=== PATIENT | female | born 1955 | race Two or more races ===

== ENCOUNTER 2021-01-15 18:00 | Emergency (ER) | payer MEDICARE ==
[~2021-01-15] VITALS: Ht 160 cm; Wt 72.6 kg
[2021-01-15 21:10] VITALS: BP 136/59
[2021-01-15] MEDS ORDERED: ACETAMINOPHEN 325 MG TAB PO ONE (22:00)
== END 2021-01-15 22:31 | disposition home or self-care (01) ==
LOC: ER 18:00
DX: I83.91 Asymptomatic varicose veins of right lower extremity (principal); M25.571 Pain in right ankle and joints of right foot; Z86.73 Personal history of transient ischemic attack (TIA), and cerebral infarction without residual deficits
CPT/HCPCS: 73610; 73630; 93971

== ENCOUNTER 2021-06-03 10:29 | Inpatient (IN) | payer MEDICARE ==
[~2021-06-03] VITALS: Ht 157.5 cm; Wt 63.5 kg
[2021-06-03 11:19] LABS: Basophils # (auto) 0.1 10 ^3/uL (0-0.2); Basophils % (auto) 0.4 % (0.0-2.0); Eosinophils # (auto) 0.1 10 ^3/uL (0-0.8); Eosinophils % (auto) 0.4 % (0.0-7.0); Hematocrit 40.8 % (36.0-46.0); Hemoglobin 13.7 g/dL (12.2-16.2); Lymphocytes # (auto) 1.1 10 ^3/uL (0.4-5.4); Lymphocytes % (auto) 7.2 % (10.0-50.0); Mean Corpuscular Hemoglobin 31.3 pg (28.0-32.0); Mean Corpuscular Hgb Conc. 33.5 g/dL (32.0-36.0); Mean Corpuscular Volume 93.4 fL (80.0-100.0); Monocytes # (auto) 0.7 10 ^3/uL (0-1.3); Monocytes % (auto) 4.5 % (0.0-12.0); Neutrophils # (auto) 13.2 10 ^3/uL (1.6-8.6); Neutrophils % (auto) 87.5 % (37.0-80.0); Red Blood Cells 4.37 10^6/uL (4.0-5.20); Red Cell Distribution Width 14.4 % (11.8-14.3); White Blood Cell 15.1 10^3/uL (4.4-10.8)
[2021-06-03 11:32] LABS: Albumin 3.4 g/dL (3.4-5.0); Potassium 4.4 mmol/L (3.5-5.1)
[2021-06-03 11:42] LABS: Bilirubin, Total 0.5 mg/dL (0.2-1.0); Total Protein 8.5 g/dL (6.4-8.2)
[2021-06-03 12:18] LABS: Urine Amorphous Crystal FEW /hpf (None Seen); Urine Bacteria FEW /hpf (None Seen); Urine Blood 2+ /uL (Negative); Urine Budding Yeast OCCASIONAL /hpf (None Seen); Urine Mucus FEW (None Seen); Urine Specific Gravity 1.024 (1.001-1.035); Urine WBC 5 /hpf (0 - 5)
[2021-06-03] MEDS ORDERED: ONDANSETRON HCL 4 MG/2 ML VIAL IV PRN (12:30)
[2021-06-03] MEDS ORDERED: HYDROcodone-ACET 5/325MG TAB PO PRN (12:30)
[2021-06-03] MEDS ORDERED: ACETAMINOPHEN 500 MG TAB PO PRN (12:30)
[2021-06-03] MEDS ORDERED: NITROGLYCERIN 0.4 MG SL TAB SL PRN (12:30)
[2021-06-03] MEDS ORDERED: MORPHINE SULF INJ 2 MG/ML SYRINGE 1ML IV PRN ×2 (12:30)
[2021-06-03] MEDS: LACTATED RINGER'S 1,000 ML IV SCH (13:16)
[2021-06-03 17:00] VITALS: BP 131/71
[2021-06-03 22:00] VITALS: BP 102/59
[2021-06-03] MEDS ORDERED: METF-370 PO (23:59)
[2021-06-03] MEDS ORDERED: MELA10TA3 OR (23:59)
[2021-06-03] MEDS ORDERED: CYCL10TA6 PO (23:59)
[2021-06-03] MEDS ORDERED: ESCI10TA PO (23:59)
[2021-06-04] MEDS: LACTATED RINGER'S 1,000 ML IV SCH ×2 (04:07→17:15)
[2021-06-04 05:00] VITALS: BP 102/59
[2021-06-04 09:07] VITALS: BP 102/61
[2021-06-04 09:32] LABS: Basophils # (auto) 0 10 ^3/uL (0-0.2); Basophils % (auto) 0.6 % (0.0-2.0); Eosinophils # (auto) 0.2 10 ^3/uL (0-0.8); Eosinophils % (auto) 1.8 % (0.0-7.0); Hematocrit 38.1 % (36.0-46.0); Hemoglobin 13.1 g/dL (12.2-16.2); Lymphocytes # (auto) 1.5 10 ^3/uL (0.4-5.4); Lymphocytes % (auto) 18.1 % (10.0-50.0); Mean Corpuscular Hgb Conc. 34.4 g/dL (32.0-36.0); Mean Corpuscular Volume 92.9 fL (80.0-100.0); Monocytes # (auto) 0.4 10 ^3/uL (0-1.3); Monocytes % (auto) 4.8 % (0.0-12.0); Neutrophils # (auto) 6.3 10 ^3/uL (1.6-8.6); Neutrophils % (auto) 74.7 % (37.0-80.0); Red Cell Distribution Width 14.4 % (11.8-14.3); White Blood Cell 8.4 10^3/uL (4.4-10.8)
[2021-06-04 09:56] LABS: Albumin 2.9 g/dL (3.4-5.0); BUN/Creatinine Ratio 15.2; Bilirubin, Total 0.5 mg/dL (0.2-1.0); Calcium 8.5 mg/dL (8.5-10.1); Total Protein 7.6 g/dL (6.4-8.2)
[2021-06-04 13:00] VITALS: BP 105/66
[2021-06-04] MEDS ORDERED: PANTOPRAZOLE 40 MG/10 ML VIAL INJ IV ONE (14:15)
[2021-06-04 17:03] VITALS: BP 107/56
[2021-06-04 22:00] VITALS: BP 117/71
[2021-06-05] MEDS: LACTATED RINGER'S 1,000 ML IV SCH ×4 (00:50→17:40)
[2021-06-05 05:00] VITALS: BP 110/42
[2021-06-05 08:30] VITALS: BP 136/62
[2021-06-05] MEDS: PANTOPRAZOLE 40 MG/10 ML VIAL INJ IV SCH (09:05)
[2021-06-05] MEDS: CITALOPRAM HYDROBR 20 MG TAB PO SCH (09:05)
[2021-06-05 09:32] LABS: Hematocrit 36.4 % (36.0-46.0); Hemoglobin 12.8 g/dL (12.2-16.2)
[2021-06-05 09:52] LABS: Magnesium 1.8 mg/dL (1.6-2.6); Potassium 3.9 mmol/L (3.5-5.1)
[2021-06-05] MEDS ORDERED: IOHEXOL 300 MG/ML 100ML BOTTLE IJ ONE (10:28)
[2021-06-05 12:30] VITALS: BP 105/70
[2021-06-05] MEDS ORDERED: MAGNESIUM SULFATE 1GM/100ML 100 ML IV ONE (12:45)
[2021-06-05] MEDS ORDERED: cefTRIAXone 1GM/50ML D5W 50 ML IV ONE (13:00)
[2021-06-05] MEDS: metroNIDAZOLE 500MG/100ML 100 ML IV SCH ×2 (14:50→21:26)
[2021-06-05 17:00] VITALS: BP 129/60
[2021-06-05 22:57] VITALS: BP 103/63
[2021-06-06] MEDS: LACTATED RINGER'S 1,000 ML IV SCH ×3 (01:01→13:40)
[2021-06-06 05:36] VITALS: BP 117/56
[2021-06-06] MEDS: metroNIDAZOLE 500MG/100ML 100 ML IV SCH ×2 (06:08→14:00)
[2021-06-06 08:35] VITALS: BP 106/57
[2021-06-06] MEDS ORDERED: cefTRIAXone 1GM/50ML D5W 50 ML IV SCH (09:00)
[2021-06-06] MEDS: CITALOPRAM HYDROBR 20 MG TAB PO SCH (10:00)
[2021-06-06] MEDS: PANTOPRAZOLE 40 MG/10 ML VIAL INJ IV SCH (10:08)
[2021-06-06] MEDS ORDERED: METR500T PO (10:26)
[2021-06-06] MEDS ORDERED: PANT40TA2 PO (10:26)
[2021-06-06] MEDS ORDERED: LEVO500T31 PO (10:26)
[2021-06-06 12:30] VITALS: BP 106/66
[2021-06-06 15:58] VITALS: BP 106/66
== END 2021-06-06 17:00 | disposition home or self-care (01) | DRG 391 ==
LOC: ER 10:29 → TELE 12:25 → WEST WING 15:24 → TELE-WESTW 06-05 10:45
PROVIDERS: ADMIT Nurse Practitioner Acute Care; ATTEND Internal Medicine
DX: K52.9 Noninfective gastroenteritis and colitis, unspecified (principal); K85.90 Acute pancreatitis without necrosis or infection, unspecified; R65.10 Systemic inflammatory response syndrome (SIRS) of non-infectious origin without acute organ dysfunction; K62.5 Hemorrhage of anus and rectum; Z20.822 Contact with and (suspected) exposure to COVID-19; E11.9 Type 2 diabetes mellitus without complications; F32.9 Major depressive disorder, single episode, unspecified; F41.9 Anxiety disorder, unspecified; K64.8 Other hemorrhoids; E78.5 Hyperlipidemia, unspecified; I10 Essential (primary) hypertension; Z79.84 Long term (current) use of oral hypoglycemic drugs; Z86.73 Personal history of transient ischemic attack (TIA), and cerebral infarction without residual deficits; Z87.442 Personal history of urinary calculi; Z90.49 Acquired absence of other specified parts of digestive tract; Z90.710 Acquired absence of both cervix and uterus; Z79.899 Other long term (current) drug therapy
CPT/HCPCS: 36415; 74176; 74177; 80053; 80061; 81001; 82150; 82270; 83036; 83690; 83735; 84132; 85014; 85018; 85025; 86141; 86850; 86870; 86900; 86901; 87086; 87426; 93005; 96360; C9113; G0378; J0696; J3490

== ENCOUNTER 2022-11-26 13:38 | Emergency (ER) | payer MEDICARE ==
[~2022-11-26] VITALS: Ht 160 cm; Wt 55.0 kg
[~2022-11-26 13:38] MED LIST: CYCL-839 PO; ESCI10TA PO; LEVO500T31 PO; MELA10TA3 OR; METR500T PO; PANT40TA2 PO
[2022-11-26 14:06] VITALS: BP 117/46
[2022-11-26 14:42] LABS: Urine Bacteria FEW /hpf (None Seen); Urine Blood 2+ /uL (Negative); Urine Mucus FEW (None Seen); Urine Specific Gravity 1.024 (1.001-1.035); Urine WBC 20 /hpf (0 - 5)
[2022-11-26 14:56] LABS: Basophils # (auto) 0.2 10 ^3/uL (0-0.2); Basophils % (auto) 3.1 % (0.0-2.0); Eosinophils # (auto) 0.2 10 ^3/uL (0-0.8); Eosinophils % (auto) 2.2 % (0.0-7.0); Hematocrit 39.5 % (36.0-46.0); Hemoglobin 13.2 g/dL (12.2-16.2); Lymphocytes # (auto) 1.1 10 ^3/uL (0.4-5.4); Lymphocytes % (auto) 13.4 % (10.0-50.0); Mean Corpuscular Hgb Conc. 33.4 g/dL (32.0-36.0); Mean Corpuscular Volume 92.7 fL (80.0-100.0); Monocytes # (auto) 0.3 10 ^3/uL (0-1.3); Monocytes % (auto) 4.2 % (0.0-12.0); Neutrophils # (auto) 6.2 10 ^3/uL (1.6-8.6); Neutrophils % (auto) 77.1 % (37.0-80.0); Red Blood Cells 4.26 10^6/uL (4.0-5.20); Red Cell Distribution Width 15.3 % (11.8-14.3)
[2022-11-26 15:17] LABS: Albumin 3.9 g/dL (3.4-5.0); Calcium 9.2 mg/dL (8.5-10.1); Potassium 3.8 mmol/L (3.5-5.1)
[2022-11-26 15:34] LABS: BUN/Creatinine Ratio 14.5; Bilirubin, Total 0.5 mg/dL (0.2-1.0); Total Protein 8.3 g/dL (6.4-8.2)
[2022-11-26] MEDS ORDERED: KETOROLAC TROMETH 60MG/2ML VIAL IM ONE (16:15)
== END 2022-11-26 19:01 | disposition home or self-care (01) ==
LOC: ER 13:38
DX: N83.201 Unspecified ovarian cyst, right side (principal); E11.9 Type 2 diabetes mellitus without complications; E78.5 Hyperlipidemia, unspecified; I10 Essential (primary) hypertension; Z90.49 Acquired absence of other specified parts of digestive tract; Z90.710 Acquired absence of both cervix and uterus; Z87.442 Personal history of urinary calculi
CPT/HCPCS: 36415; 73502; 74176; 80053; 81001; 85025